=== PATIENT | female | born 2000 | race Caucasian/White ===

== ENCOUNTER 2020-06-15 13:11 | Outpatient (CLI) | payer OTHER, SELFPAY ==
--- NOTE | ~2020-06-15 | US_ITS ---
EXAMINATION: US OB follow up DATE: 06/15/2020 13:53 INDICATION: Evaluate dating of at the transition from the first or second trimester TECHNIQUE: Real-time ultrasound of the pelvis was performed. The interpreting radiologist was not pre sent for the study. COMPARISON: None. FINDINGS: There is a single living fetus in viable presentation. The placenta is anterior. heart rate is 157 beats per minute (bpm). The amniotic fluid index is subjectively normal. 1.4 x 0.8 x 0.9 cm subc horionic hematoma along the left inferior margin of the placenta. The following biometric data were obtained: BPD: 2.6 cm -> 14 weeks 4 days Head circumference: 9.8 cm -> 14 weeks 4 days Abdominal circumference: 8.2 cm -> 14 weeks 4 days Femur length: 1.2 cm -> 13 weeks 3 days These measurements are concordant. Head circumference to abdominal circumference ratio: 1.19 (normal range 1.08-1.36). Estimated weight: 89 g (+/-) 13 g. IMPRESSION: 1. Single living fetus in variable presentation with heart rate of 157 bpm. 2. Gestational age by ultrasound of 14 weeks 2 day(s) +/- 7 day(s) with ultrasound estimated date of delivery (JESUSITA) of 12/12/2020. Estimated weight is 89th percentile by Hadlock criteria when 2020 is used as the JESUSITA. Please correlate with clinical information or earlier ultrasounds for most a ccurate JESUSITA. 3. Small subchorionic hematoma. Reviewed, dictated and finalized at location A. IMPRESSION: 1. Single living fetus in variable presentation with heart rate of 157 bp m. 2. Gestational age by ultrasound of 14 weeks 2 day(s) +/- 7 day(s) with ultraso und estimated date of delivery (JESUSITA) of 12/12/2020. Estimated weight is 89 th percentile by Hadlock criteria when 12/10/2020 is used as the JESUSITA. Please cor relate with clinical information or earlier ultrasounds for most accurate JESUSITA. 3. Small subchorionic hematoma.
== END 2020-06-15 13:12 | disposition home or self-care (01) ==
PROVIDERS: PCP Pediatrics; Visit Provider Obstetrics & Gynecology
DX: Z36.89 Encounter for other specified antenatal screening (principal); Z3A.14 14 weeks gestation of pregnancy; O36.8911 Maternal care for other specified fetal problems, first trimester, fetus 1
CPT/HCPCS: 76816

== ENCOUNTER 2020-06-27 14:20 | Outpatient (CLI) | payer OTHER, SELFPAY ==
[2020-06-27 14:57] LABS: Basophils Percent Auto 0.2 % (0.2-1.2); Eosinophils Absolute Auto 0.1 K/mm3 (0-0.3); Eosinophils Percent Auto 1.3 % (0-4.4); Hematocrit 31.3 % (37.0-47.0); Hemoglobin 10.1 g/dL (12.0-15.0); Immature Granulocyte Absolute 0.03 K/mm3 (0.00-0.031); Immature Granulocyte Percent A 0.4 % (0-0.5); Lymphocytes Absolute Auto 2.09 K/mm3 (0.9-3.2); Lymphocytes Percent Auto 25.3 % (18.3-44.2); Mean Corpuscular HGB Conc 32.3 g/dl (32-36); Mean Corpuscular Volume 80.5 fl (80-100); Mean Platelet Volume 11.6 fl (7.4-10.4); Monocytes Absolute Auto 0.4 K/mm3 (0.1-0.6); Monocytes Percent Auto 4.4 % (2.6-8.5); Neutrophils Absolute Auto 5.7 K/mm3 (1.3-6.7); Neutrophils Percent Auto 68.4 % (45.5-73.1); Platelet Count Result 206 k/mm3 (150-375); Red Blood Count 3.89 M/mm3 (4.2-5.4); Red Cell Distribution Width 14.1 % (11.5-14.5); White Blood Count 8.3 K/mm3 (4.5-10.0)
[2020-06-27 15:49] LABS: HIV 1/2 Ab P24 Ag Result Negative (Negative)
[2020-06-27 16:07] LABS: Hepatitis B Surface Antigen Negative (Negative); Rubella IgG Antibody 19.4 IU/ML
[2020-06-27 16:21] LABS: Hepatitis C Virus Antibody Negative (Negative)
[2020-06-28 07:21] LABS: Rapid Plasma Reagin Non-Reactive (NonReactive)
== END 2020-06-27 14:21 | disposition home or self-care (01) ==
PROVIDERS: PCP Pediatrics; Visit Provider Obstetrics & Gynecology
DX: Z34.90 Encounter for supervision of normal pregnancy, unspecified, unspecified trimester (principal); Z3A.00 Weeks of gestation of pregnancy not specified
CPT/HCPCS: 36415; 85025; 86592; 86703; 86762; 86803; 86850; 86900; 86901; 87340; G0432

== ENCOUNTER 2020-11-30 19:16 | Observation (INO) | payer OTHER, SELFPAY ==
[2020-11-30] VITALS (8 sets, daily range): BP systolic 104–129; BP diastolic 53–71; PULSE 62–103; BMI 21.8
== END 2020-11-30 21:45 | disposition home or self-care (01) ==
PROVIDERS: Admitting Provider Obstetrics & Gynecology; PCP Pediatrics; Visit Provider Obstetrics & Gynecology
DX: O47.1 False labor at or after 37 completed weeks of gestation (principal); Z3A.38 38 weeks gestation of pregnancy
CPT/HCPCS: G0378; G0379

== ENCOUNTER 2020-12-10 15:28 | Observation (INO) | payer OTHER, SELFPAY ==
[2020-12-10 16:00] VITALS: BMI 21.8
--- NOTE | 2020-12-10 18:21 | OBADM ---
This patient, Rebel Kumar, admitted to the OB room Labor/Delivery/Recovery 106 for observation. Patient/family oriented to hospital policies and general routines including ID bracelet, bed and alarms, visiting hours, pain management, procedures, bathroom and other care routines, personal items, smoking policy, room service/diet, call light, and visiting hours. Patient/Family are encouraged to report perceived risks to care and to ask questions if they do not understand what they are told or what they should do.
--- NOTE | 2020-12-19 10:34 | PM.OBTRLD ---
OB - Triage/Final Diagnosis Visit Information Comments/Additional reasons for admission: I have assessed the risk for this patient, Rebel Kumar, and determined that she would benefit from observation care. Final Diagnosis (1) False labor, unspecified: Code(s): O47.9 - False labor, unspecified Status: Acute
== END 2020-12-10 18:26 | disposition home or self-care (01) ==
PROVIDERS: Admitting Provider Obstetrics & Gynecology; PCP Pediatrics; Visit Provider Obstetrics & Gynecology
DX: O47.1 False labor at or after 37 completed weeks of gestation (principal); Z3A.40 40 weeks gestation of pregnancy
CPT/HCPCS: G0378; G0379

== ENCOUNTER 2020-12-11 05:57 | Inpatient (IN) | payer OTHER, SELFPAY ==
[2020-12-10 16:16] VITALS: BMI 21.8
[2020-12-11] VITALS (53 sets, daily range): BP systolic 73–134; BP diastolic 45–97; PULSE 61–130; RESP 14–16; TEMP 36.3–37.1; O2SAT 99–100
--- NOTE | 2020-12-11 06:35 | WPDANESEPP ---
Anes - Eval Pre Procedure Procedure: labor epidural Date/Time: 12/11/20 06:35 Surgeon: eric Preop Diagnosis: pain during labor Pre Op Diagnosis: Induction of Labor Patient Data Age: 20 Gender: F Height: 1.5 m Weight: 49 kg Last Vital Signs Pulse 77 12/11/20 06:30 BP 128/70 12/11/20 06:30 Allergies Allergy/AdvReac Type Severity Reaction Status Date / Time latex Allergy Hives Verified 12/10/20 16:35 nickel Allergy Hives Verified 12/10/20 16:35 Patient hx anesthesia problems: none Family hx anesthesia problems: none PMFSH Past Medical History Medical History (Updated 12/06/20 @ 15:14 by Shannon Lancaster CMA) Vaginal delivery x3 Family History Family History (Updated 12/10/20 @ 16:18 by Yamilet Sheikh RN) Mother Hypertension Father Hypertension Social History Social History Smoking status: Never smoker Alcohol intake: never Substance use: never Gender identity (if verbalized by the patient): Female Sexual Orientation (if Verbalized by the Patient): Straight or Heterosexual Spiritual care concerns: No Exam Day of Procedure 12/11/20 06:35
[2020-12-11 06:49] LABS: Basophils Percent Auto 0.2 % (0.2-1.2); Eosinophils Absolute Auto 0.1 K/mm3 (0-0.3); Eosinophils Percent Auto 0.7 % (0-4.4); Hematocrit 32.2 % (37.0-47.0); Hemoglobin 10.2 g/dL (12.0-15.0); Immature Granulocyte Absolute 0.09 K/mm3 (0.00-0.031); Immature Granulocyte Percent A 1.1 % (0-0.5); Immature Platelet Fraction Pct 9.8 % (0.9-11.2); Lymphocytes Absolute Auto 2.28 K/mm3 (0.9-3.2); Lymphocytes Percent Auto 27.9 % (18.3-44.2); Mean Corpuscular HGB Conc 31.7 g/dl (32-36); Mean Corpuscular Hemoglobin 25.5 pg (26-34); Mean Corpuscular Volume 80.5 fl (80-100); Monocytes Absolute Auto 0.5 K/mm3 (0.1-0.6); Monocytes Percent Auto 6.4 % (2.6-8.5); Neutrophils Absolute Auto 5.2 K/mm3 (1.3-6.7); Neutrophils Percent Auto 63.7 % (45.5-73.1); Platelet Count Result 179 k/mm3 (150-375); Red Cell Distribution Width 21.3 % (11.5-14.5); White Blood Count 8.2 K/mm3 (4.5-10.0)
[2020-12-11] MEDS: LACTATED RINGERS 1,000 ML 125 ML IV CONT ×2 (07:16→10:35)
[2020-12-11 07:17] LABS: Rapid Plasma Reagin Non-Reactive (NonReactive)
[2020-12-11] MEDS: OXYTOCIN 30 UNITS/NS 500 ML 30 UNITS/500 ML BAG IV CONT (07:17)
--- NOTE | 2020-12-11 07:29 | LDADM ---
This patient, Rebel Kumar, was admitted to Labor/Delivery/Recovery 106 on 12/11/20 at 05:57. Plans for labor, pain management and were discussed with patient. Patient/family oriented to hospital policies and general routines including ID bracelet, bed and alarms, visiting hours, pain management, procedures, bathroom and other care routines, personal items, smoking policy, room service/diet and guest tray routines, security routines, and visiting hours. Patient/Family are encouraged to report perceived risks to care and to ask questions if they do not understand what they are told or what they should do. See OBIX for further documentation.
--- NOTE | 2020-12-11 08:55 | WPDOBADMIT ---
Obstetrics - Admit Note Admission Note: record reviewed. No pertinent additions to the history and/or any subsequent changes in the physical findings that are not consistent with the expected course of the were found. Additions to the history and/or subsequent changes in the physical findings follow. at 39+ weeks for induction of labor. Cervix 3-4/30/-2/soft/anterior. AROM with clear pink-tinged fluid. Continue pitocin. Negative GBS
[2020-12-11] MEDS: ONDANSETRON INJ 4 MG/2 ML VIAL IV PUSH (11:15)
--- NOTE | 2020-12-11 12:13 | PM.OBPRVD ---
OB - Delivery Note Procedure Delivery date: 12/11/20 Procedure: events: Labor Induction Induction method: AROM and per pitocin protocol Delivery monitor: external FHT and external uterine Route of delivery: Laceration Description: Perineal - 2nd Degree Delivery repair: vicryl (3-0) Specimen: No Quantitative Blood Loss (ml): 224 Anesthesia type: Epidural Disposition: floor Baby Date of : 12/11/20 Time of : 11:45 Weeks of gestation at delivery: 39 Infant gender: Female Weight (pounds): 7 Weight (ounces): 10 presentation: vertex position: Left Occiput Anterior Placenta delivery description: Spontaneous cord vessel description: 3 Vessels, Nuchal Cord, Loose, Reduced and Clamped/Cut score one minute: 9 score five minutes: 9
[2020-12-11] MEDS: OXYTOCIN 30 UNITS/NS 500 ML 30 UNITS/500 ML BAG 125 UNITS IV CONT (12:25)
--- NOTE | 2020-12-11 14:06 | PC.NURSE ---
Patient transferred to post room #291 per wheelchair from labor and delivery. Support person present. Oriented to unit, room, information board, rooming in, admission packet and security measures. Patient verbalizes understanding.
--- NOTE | 2020-12-11 14:55 | PC.NURSE ---
Breast pump provided due to mother wishes to pump and bottle feed. Instructions given on breast pump care and usage, pumping schedule, nipple care, and collection and storage of breast milk. Encouraged wupj-hi-jrpt, breast massage and manual expression to stimulate supply. Discussed milk supply may be small at first, any amount can be given to infant. Assessed patient for correct flange size, placement and draw. Patient verbalizes and demonstrates understanding of instructions.
[2020-12-11] MEDS: IBUPROFEN 600 MG TABLET PO ×2 (15:41→23:49)
[2020-12-12 04:50] VITALS: BP 100/48; PULSE 70; RESP 15; TEMP 36.3; O2SAT 99
[2020-12-12 05:30] LABS: Hematocrit 31.4 % (37.0-47.0); Hemoglobin 9.8 g/dL (12.0-15.0)
[2020-12-12] MEDS: WITCH HAZEL 40 PADS 1 PAD TOPICAL (07:01)
[2020-12-12] MEDS: DOCUSATE SODIUM 100 MG CAPSULE PO (07:01)
[2020-12-12] MEDS: LANOLIN (LANSINOH) 7.5 GM CREAM 1 APPLIC TOPICAL (07:01)
[2020-12-12] MEDS: BENZOCAINE 20% AER SPR (*SP) 56 GM CAN 1 SPRAY TOPICAL (07:01)
[2020-12-12] MEDS: POLYSACCHARIDE IRON COMPLEX 150 MG CAPSULE PO (07:01)
[2020-12-12] MEDS: IBUPROFEN 600 MG TABLET PO (07:02)
[2020-12-12] MEDS: MULTIVIT/MIN/PREN/FOL AC/IRON TABLET 1 TAB PO (07:02)
[2020-12-12 07:15] VITALS: BP 99/57; PULSE 81; RESP 18; TEMP 36.5
--- NOTE | 2020-12-12 08:08 | PM.OBPNVD ---
OB - PN: Subj Subjective Date/time seen: 12/12/20 08:08 Patient comments: no complaints, pain well controlled and other (Lochia similar to menses) [place] baby status: doing well OB - PN: Obj Data Labs CBC & Chem 7: 12/12/20 05:05 Labs: Laboratory Results - last 24 hr 12/12/20 05:05 Hgb 9.8 L Hct 31.4 L OB - PN A/P Plan day: 1 (s/p vaginal delivery, doing well) Plan: routine care and discharge home (Follow up in 4 weeks) Time Spent With Patient Time: Total time spent is greater than 50% in coordination of care (as documented) at patient's floor/unit and/or counseling patient: Time with patient: less than 15 minutes Exam Const: General: no acute distress GI: Inspection: other (Fundus firm and nontender at umbilicus) GI Palp: Yes Soft to palpation and No Tenderness to palpation present (GI) Extrem: General: no edema
--- NOTE | 2020-12-12 08:09 | PM.OBDSVD ---
DS: Admitting Diagnosis Admitting Diagnosis Admitting Diagnosis: induction of labor DS: Discharge Diagnosis Discharge Diagnosis (1) Normal vaginal delivery of fourth : Code(s): O80 - Encounter for full-term uncomplicated delivery Status: Acute OB - DS: Summary OB Procedures : None OB Procedures Intrapartum: Spontaneous Vag Delivery OB Procedures: : None Peripartum Data Infant Delivery Method: Natural Vaginal Laceration Description: Perineal - 2nd Degree complications: none Status at Discharge Functional status at discharge: independent ambulation Overall status at discharge: patient is progressing back to baseline Time Spent with Patient Time attestation: Total time spent providing and/or coordinating discharge services: Time spent: Less than 30 minutes DS: Data Data Completed and Pending Labs on day of discharge: Labs from last 24 hours 12/12/20 05:05 Hgb 9.8 L Hct 31.4 L Discharge Plan Discharge Attending physician on discharge: Rebekah Hein Discharging Clinician: Rebekah Hein Patient Disposition: Home, Self-Care Activity: may shower and pelvic rest Diet: as tolerated Patient Instructions: Antibiotic Form Stand Alone Forms: General Discharge Information Follow-up/Referrals: Rebekah Hein MD [Physician] - 4 Weeks Discharge Medications: New ibuprofen 600 mg Tablet 600 mg PO Q6H PRN (Reason: Cramping) Qty: 60 RF: 0 No Action No Home Medications RF: 0 Date of admission: 12/11/20 05:57 Primary Care Provider: SabinaMarlo Admitting Provider: Rebekah Hein Attending physician on admission: Rebekah Hein Condition: Stable
--- NOTE | 2020-12-12 09:00 | PC.NURSE ---
Patient was given the opportunity to view the discharge video Mother & Baby Care, The First Two Weeks and to ask questions. Patient declined viewing the video and has been given the mother/baby guide for home reference.
--- NOTE | 2020-12-12 09:05 | WPDANLDPN2 ---
Anes-Prog Note L&D Date/Time: 12/12/20 09:05 Comfortable throughout: labor and delivery Neuraxial method: epidural Epidural/Spinal procedure site: clean & non-tender Neuro status: Neuro function grossly intact. Cardiovascular status: normal Respiratory status: normal Airway patency: baseline Mental status: baseline Post-Op hydration status: normal Vital Signs: Last Vital Signs Temp 36.5 C 12/12/20 07:15 Pulse 81 12/12/20 07:15 Resp 18 12/12/20 07:15 BP 99/57 L 12/12/20 07:15 Pulse Ox 99 12/12/20 04:50 Pain score (VAS): 0/10. Patient resting in bed at time of assessment, appears comfortable. Support person at bedside. I/O: Intake & Output 12/11/20 12/12/20 12/12/20 23:59 07:59 15:59 Intake Total 500 Balance 500 Post-procedural complaints: none Patient feedback: Patient satisfied with anesthetic care.
--- NOTE | 2020-12-12 10:30 | PC.NURSE ---
Consult with pt., mother states she put infant to breast last evening and has put to breast every feeding. Mother states her plan was to pump and bottle feed only putting to breast to assist with milk supply. Mother states she will continue to put to breast supplementing after if she feels is not satisfied after . Reviewed infant feeding cues, frequencies, duration of feedings, feeding elimination flow sheet, and signs of adequate intake. Demonstrated stimulation techniques to wake for feeding. Assisted with infant to breast. Reviewed positioning/alignment in cross cradle, holding breast in U hold and guided asymmetrical latch on. was able to latch correctly within a few attempts. Infant nursed eagerly, with steady draws and frequent swallowing noted. Reviewed signs of a correct latch, effective nursing and suck swallow ratio. Infant was able to maintain latch. Mother reported tenderness at times, had slipped to shallow latch. Demonstrated how to adjust latch more deeply while feeding. Mother quickly reports she can feel is latched more deeply and has minimal tenderness. Suggested to stimulate while feeding to keep awake and nursing effectively for increased stimulation and increased intake. Instructed mother to call out for RN assistance if she is unable to latch for feeding or she has discomfort with nursing. Mother has a [employer] double electric pump for home use. Mother has bottle fed first 3 children, reviewed the difference of bottle feeding in comparison to . Mother plans on discharge after 24 hours. Mother able to independently latch infant with appropriate positioning/alignment. She denies any nipple discomfort, is feeding as required and waking to feed if needed. Infant has had several as required effective feedings in the past 24 hours, and is currently meeting outcomes for weight, output, jaundice and feeding frequencies. Mother states she feels confident to continue effective at home. Reviewed transition to breast milk, signs of adequate intake, and engorgement/relief. Instructed to call ICP if intake/output less than required. Reviewed regular medications mother is taking. Information provided per Jazmyne. Reviewed community resources on the [employer] website and in the Mom/Baby guide. Information on outpatient services provided. Mother has no further questions at this time.
--- NOTE | 2020-12-12 11:21 | PC.NURSE ---
Self care and infant care discharge instructions given including follow up visit date and time. Pt. verbalized understanding. No questions or concerns voiced. FOB at side. Pt. very pleasant and cooperative.
== END 2020-12-12 12:50 | disposition home or self-care (01) | DRG 560 ==
LOC: ANHLDR 06:00 → ANHOB2 14:26
PROVIDERS: Admitting Provider Obstetrics & Gynecology; PCP Pediatrics; Visit Provider Obstetrics & Gynecology
DX: O62.3 Precipitate labor (principal); Z37.0 Single live birth; Z3A.40 40 weeks gestation of pregnancy; O69.81X0 Labor and delivery complicated by cord around neck, without compression, not applicable or unspecified; O70.1 Second degree perineal laceration during delivery
CPT/HCPCS: 36415; 85014; 85018; 85025; 85055; 86592; 86850; 86900; 86901; A9270; J2405; J2590; J2795; J7120

== ENCOUNTER 2022-07-19 15:57 | Emergency (ER) | payer OTHER, SELFPAY ==
[2022-07-19 16:02] VITALS: BP 107/67; PULSE 115; RESP 20; TEMP 38.6; O2SAT 100
--- NOTE | 2022-07-19 16:12 | ED.GENADULT ---
HPI - General Adult General Chief complaint: RN CHEMICAL DEPENDENCY Stated complaint: Mastitis Time Seen by Provider: 07/19/22 16:12 Source: patient, RN notes reviewed and old records reviewed Mode of arrival: ambulatory Limitations: no limitations History of Present Illness HPI narrative: 21-year-old female who presents to [facility] care with complaints of chills, vomiting, left breast inflammation, and fevers which started yesterday. Patient has red inflamed left breast that is tender to touch and warm. Patient started weaning her baby last week after breast feeding since November of 2020. Patient reports that she did feed child from right breast at bedtime last night but has not fed from left breast. MD complaint: mastitis left breast Onset (ago): day(s) (day 2 of symptoms) Severity scale (1-10): 6 Treatments prior to arrival: NSAID and other (Tylenol) Related Data Allergies Allergy/AdvReac Type Severity Reaction Status Date / Time latex Allergy Hives Verified 07/19/22 16:12 nickel Allergy Hives Verified 07/19/22 16:12 Review of Systems Review of Systems: CONSTITUTIONAL: reports fever, chills, or sweats. EYES: Denies visual changes, redness, or discharge. ENT: Denies rhinorrhea, congestion, sore throat, or otalgia. CARDIOVASCULAR: Denies chest pain, palpitations, or edema. RESPIRATORY: Denies cough or dyspnea. GASTROINTESTINAL: Denies abdominal pain,has had some nausea, vomiting, no diarrhea. GENITOURINARY: Denies dysuria or hematuria. SKIN: Positive for redness swelling and warmth to left medial breast. MUSCULOSKELETAL: Denies back pain, joint pain, or myalgia. NEUROLOGIC: Denies headache, numbness, or weakness. PSYCHIATRIC: Denies anxiety or depression. All systems reviewed & are unremarkable except as noted in HPI and below PMFSH Past Medical History Medical History (Updated 07/19/22 @ 16:42 by Darlene Willson NP) False labor, unspecified Normal vaginal delivery of fourth Vaginal delivery x3 Family History Family History (Updated 12/10/20 @ 16:18 by Yamilet Sheikh RN) Mother Hypertension Father Hypertension Social History Social History Smoking status: Never smoker Second hand tobacco smoke exposure: No Alcohol intake: never Substance use: never Gender identity (if verbalized by the patient): Female Sexual Orientation (if Verbalized by the Patient): Straight or Heterosexual Spiritual care concerns: No Comments At time of signature, agree with nursing past medical, surgical, social and family history. There is no relevant family history pertinent to the presenting complaint Exam Narrative: GENERAL: Well-appearing, well-nourished, and in no acute distress. HEAD: Normocephalic, atraumatic. EYES: PERRLA and EOMI. ENT: Nares clear, no rhinorrhea or epistaxis. Mucous membranes moist.TM's normal with good light reflex, throat pink with no lesions or exudates. NECK: Supple.no lymphadenopathy CHEST: Clear to auscultation. No respiratory distress.SAO2 100% on room air HEART: Regular rate and rhythm. No murmur heard. Normal peripheral pulses. ABDOMEN: Soft, nontender, nondistended, normal active bowel sounds. EXTREMITIES: Normal range of motion. No edema. SKIN: Warm, dry, swelling with some redness and warmth to left medial breast with fever, weaning baby from breast feeding for past week. NEURO: No focal deficits. Alert and oriented x3. Course Course Emergency Course: Patient is aware of diagnosis, understands and agrees to treatment plan.? Anticipatory guidance given.? Patient agrees to follow-up as directed and is aware of reasons to seek care at the emergency department. Portions of this record may have been created with voice recognition software Level of Care: Express Care Visit Vital Signs Vital signs: Vital Signs Temperature 38.6 C H 07/19/22 16:02 Pulse Rate 115 H 07/19/22 16:02 Respiratory Rate 20 07/19/22 16:02 Blood P
== END 2022-07-19 16:42 | disposition home or self-care (01) ==
PROVIDERS: Emergency Provider Registered Nurse
DX: N61.0 Mastitis without abscess (principal)
CPT/HCPCS: 99213; G0463

== ENCOUNTER 2023-03-04 20:33 | Inpatient (IN) | payer OTHER, SELFPAY ==
[2023-03-04] VITALS (20 sets, daily range): BP systolic 107–125; BP diastolic 58–81; PULSE 79–119; TEMP 37.3; O2SAT 96–100; BMI 21.3
--- NOTE | ~2023-03-04 | US_ITS ---
EXAMINATION: US OB follow up w BPP DATE: 03/05/2023 08:01 INDICATION: Evaluate amniotic fluid index and growth TECHNIQUE: Real-time ultrasound of the pelvis was performed. The interpreting radiologist was not pre sent for the study. COMPARISON: None. FINDINGS: There is a single living fetus in vertex presentation. The placenta is posterior. cardiac acti vity and movement are noted. heart rate is 153 beats per minute (bpm). The amniotic fluid index is 21.5 cm, which is normal. The following biometric data were obtained: BPD: 88 cm corresponds to gestational age 35 weeks 3 day(s). Head circumference: 309 cm corresponds to gestational age 34 weeks 3 day(s). Abdominal circumference: 338 cm corresponds to gestational age 37 weeks 5 day(s). Femur length: 67 cm corresponds to gestational age 34 weeks 3 day(s). Head circumference to abdominal circumference ratio: 0.91 (mean 0.93-1.09). Estimated weight: 2896 g plus or minus 434 g. Biophysical profile performed by the technologist: breathing (30 sec sustained breathing in 30 minutes): 2 out of 2 movement (3 gross body movements in 30 minutes: 2 out of 2 tone (one episode of otvnbal-vreqosmwl-qewwbtf limb movement): 2 out of 2 Amniotic fluid pocket (2 cm): 2 out of 2 Total score: 8 out of 8 IMPRESSION: 1. Single living fetus in vertex presentation with heart rate of 153 bpm. 2. Normal HUMBERTO measures 21.5 cm. 3. Biophysical profile 8 out of 8. 4. Gestational age by ultrasound of 35 weeks 4 day(s) with ultrasound estimated date of delivery (JESUSITA ) of 04/05/2023. Reviewed, dictated and finalized at location A. IMPRESSION: 1. Single living fetus in vertex presentation with heart rate of 153 bpm. 2. Normal HUMBERTO measures 21.5 cm. 3. Biophysical profile 8 out of 8. 4. Gestational age by ultrasound of 35 weeks 4 day(s) with ultrasound estimated date of delivery (JESUSITA) of 04/05/2023.
--- NOTE | 2023-03-04 21:24 | OBADM ---
This patient, Rebel Kumar, admitted to the OB room Labor/Delivery/Recovery 107 for observation. Patient/family oriented to hospital policies and general routines including ID bracelet, bed and alarms, visiting hours, pain management, procedures, bathroom and other care routines, personal items, smoking policy, room service/diet, and visiting hours. Patient/Family are encouraged to report perceived risks to care and to ask questions if they do not understand what they are told or what they should do.
[2023-03-04] MEDS: LACTATED RINGERS 1,000 ML 999 ML IV CONT (21:35)
[2023-03-05] VITALS (204 sets, daily range): BP systolic 87–128; BP diastolic 44–104; PULSE 53–181; RESP 16–18; TEMP 36.6–37.2; O2SAT 85–100
--- NOTE | 2023-03-05 02:15 | LDADM ---
This patient, Rebel Kumar, was admitted to Labor/Delivery/Recovery 107 on 03/04/23 at 20:33. Plans for labor, pain management and were discussed with patient. Patient/family oriented to hospital policies and general routines including ID bracelet, bed and alarms, visiting hours, pain management, procedures, bathroom and other care routines, personal items, smoking policy, room service/diet and guest tray routines, security routines, and visiting hours. Patient/Family are encouraged to report perceived risks to care and to ask questions if they do not understand what they are told or what they should do. See OBIX for further documentation.
[2023-03-05 03:01] LABS: Basophils Percent Auto 0.3 % (0.2-1.2); Eosinophils Percent Auto 0.5 % (0-4.4); Hematocrit 35.2 % (37.0-47.0); Hemoglobin 10.4 g/dL (12.0-15.0); Immature Granulocyte Absolute 0.02 K/mm3 (0.00-0.031); Immature Granulocyte Percent A 0.3 % (0-0.5); Lymphocytes Absolute Auto 1.65 K/mm3 (0.9-3.2); Lymphocytes Percent Auto 25.5 % (18.3-44.2); Mean Corpuscular HGB Conc 29.5 g/dl (32-36); Mean Corpuscular Hemoglobin 24.9 pg (26-34); Mean Corpuscular Volume 84.2 fl (80-100); Mean Platelet Volume 12.1 fl (7.4-10.4); Monocytes Absolute Auto 0.4 K/mm3 (0.1-0.6); Monocytes Percent Auto 5.7 % (2.6-8.5); Neutrophils Absolute Auto 4.4 K/mm3 (1.3-6.7); Neutrophils Percent Auto 67.7 % (45.5-73.1); Platelet Count Result 200 k/mm3 (150-375); Red Blood Count 4.18 M/mm3 (4.2-5.4); Red Cell Distribution Width 25.1 % (11.5-14.5); White Blood Count 6.5 K/mm3 (4.5-10.0)
[2023-03-05 03:22] LABS: Large Platelets Present; Platelet Estimate Adequate (Adequate)
[2023-03-05 03:45] LABS: Anisocytosis 2+ (NORMAL); Burr Cells 2+ (NORMAL); Hypochromasia 1+ (NORMAL); Microcytosis 2+ (NORMAL); Poikilocytosis 2+ (NORMAL)
[2023-03-05 03:46] LABS: Schistocytes None Seen (NORMAL)
[2023-03-05] MEDS: diphenhydrAMINE HCl INJ 50 MG/ML VIAL 25 MG IV PUSH (05:15)
[2023-03-05] MEDS: LACTATED RINGERS 1,000 ML 125 ML IV CONT ×2 (09:07→12:35)
[2023-03-05] MEDS: OXYTOCIN 30 UNITS/NS 500 ML 30 UNITS/500 ML BAG IV CONT (09:07)
--- NOTE | 2023-03-05 09:54 | PM.IMHP ---
H&P: HPI History of Present Illness Date/Time: 03/05/23 09:54 Chief Complaint: pt presented to LD last night in early labor, went from 1cm-3cm, after hydration and rest contractions are now every 6-8 minutes. Pt rating them a 6 on a scale of zero ten. FHR there have been questionable variables and a prolonged acceleration this am that resolved on its own. pt wanting epidural. has been complicated by anemia and pt has received an iron transfusion. 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 history of four previous vaginal births Review of Systems Review of Systems: All systems reviewed & are unremarkable except as noted in HPI and below PMFSH Past Medical History Medical History (Updated 03/05/23 @ 10:00 by Soni Boone CNM) False labor, unspecified Normal vaginal delivery of fourth Suppression of menses Vaginal delivery x3 Surgical History Surgical History H/O eye surgery Family History Family History Mother Hypertension Father Hypertension Social History Social History Smoking status: Never smoker Second hand tobacco smoke exposure: No Alcohol intake: never Substance use: never Lack of Transportation: No Lack of Food: Never True Current Housing: I Have Housing Concerned About Future Housing: No Difficulty Paying Gas/Electric Bills: No Difficulty Paying for Meds: No Currently Unemployed: No Education: High School Diploma/GED Difficulty w/ Childcare or Family Care: No Living arrangements: with family Gender identity (if verbalized by the patient): Female Sexual Orientation (if Verbalized by the Patient): Straight or Heterosexual Spiritual care concerns: No Meds Home Medications and Allergies Home Medications Medication Instructions Recorded Confirmed Type No Home Medications 02/14/23 02/21/23 History Allergies Allergy/AdvReac Type Severity Reaction Status Date / Time latex Allergy Hives Verified 02/25/23 14:43 nickel Allergy Hives Verified 02/25/23 14:43 Vital Signs Vital Signs - 24 hr 03/04/23 21:03 03/04/23 21:08 03/04/23 21:13 Temperature Pulse Rate Blood Pressure Pulse Oximetry 99 100 100 Oxygen Delivery 03/04/23 21:15 03/04/23 21:18 03/04/23 21:23 Temperature Pulse Rate 100 Blood Pressure 107/77 Pulse Oximetry 100 100 Oxygen Delivery 03/04/23 21:28 03/04/23 21:30 03/04/23 21:33 Temperature Pulse Rate 82 Blood Pressure 116/79 Pulse Oximetry 100 100 Oxygen Delivery 03/04/23 21:38 03/04/23 21:43 03/04/23 21:46 Temperature Pulse Rate 98 Blood Pressure 111/81 Pulse Oximetry 100 99 Oxygen Delivery 03/04/23 21:47 03/04/23 21:52 03/04/23 21:57 Temperature Pulse Rate Blood Pressure Pulse Oximetry 96 97 96 Oxygen Delivery 03/04/23 22:01 03/04/23 22:16 03/04/23 22:30 Temperature Pulse Rate 102 H 102 H 102 H Blood Pressure 125/71 122/58 L 119/72 Pulse Oximetry Oxygen Delivery 03/04/23 22:34 03/04/23 23:52 03/05/23 01:57 Temperature 37.3 C Pulse Rate Blood Pressure Pulse Oximetry 100 98 Oxygen Delivery 03/05/23 02:02 03/05/23 02:07 03/05/23 02:12 Temperature Pulse Rate Blood Pressure Pulse Oximetry 100 100 99 Oxygen Delivery 03/05/23 02:17 03/05/23 02:22 03/05/23 02:27 Temperature Pulse Rate Blood Pressure Pulse Oximetry 100 100 100 Oxygen Delivery 03/05/23 02:32 03/05/23 02:37 03/05/23 02:42 Temperature Pulse Rate Blood Pressure Pulse Oximetry 99 99 99 Oxygen Delivery 03/05/23 02:47 03/05/23 02:52 03/05/23 02:57 Temperature Pulse Rate Blood Pressure Pulse Oximetry 99 98 99 Oxygen Delivery 03/05/23 03:02 03/05/23 03:05 03/05/23 03:10 Temperature Pulse Rate Blood Pressure
--- NOTE | 2023-03-05 11:47 | WPDANESEPP ---
Anes - Eval Pre Procedure Procedure: Labor epidural Date/Time: 03/05/23 11:47 Surgeon: Doug Preop Diagnosis: Pain during labor Pre Op Diagnosis: Contractions Patient Data Age: 22 Gender: F Height: 1.5 m Weight: 48 kg Last Vital Signs Temp 37.2 C 03/05/23 09:42 Pulse 98 03/05/23 11:46 BP 112/64 03/05/23 11:46 Pulse Ox 100 03/05/23 10:20 O2 Del Method Room Air 03/05/23 02:13 Allergies Allergy/AdvReac Type Severity Reaction Status Date / Time latex Allergy Hives Verified 02/25/23 14:43 nickel Allergy Hives Verified 02/25/23 14:43 Home Medications Medication Instructions Recorded Confirmed Type No Home Medications 02/14/23 02/21/23 History Laboratory Tests 03/05/23 02:54 WBC 6.5 K/mm3 (4.5-10.0) RBC 4.18 L M/mm3 (4.2-5.4) Hgb 10.4 L g/dL (12.0-15.0) Hct 35.2 L % (37.0-47.0) MCV 84.2 fl (80-100) MCH 24.9 L pg (26-34) MCHC 29.5 L g/dl (32-36) RDW 25.1 H % (11.5-14.5) Plt Count 200 k/mm3 (150-375) MPV 12.1 H fl (7.4-10.4) Immature Gran % (Auto) 0.3 % (0-0.5) Neut % (Auto) 67.7 % (45.5-73.1) Lymph % (Auto) 25.5 % (18.3-44.2) [place] % (Auto) 5.7 % (2.6-8.5) Eos % (Auto) 0.5 % (0-4.4) Baso % (Auto) 0.3 % (0.2-1.2) Lymph # (Auto) 1.65 K/mm3 (0.9-3.2) [place] # (Auto) 0.4 K/mm3 (0.1-0.6) Eos # (Auto) 0.0 K/mm3 (0-0.3) Baso # (Auto) 0.0 K/mm3 (0.0-0.1) Abs Immat Gran (auto) 0.02 K/mm3 (0.00-0.031) Absolute Neuts (auto) 4.4 K/mm3 (1.3-6.7) Absolute Nucleated RBC 0.0 K/mm3 (0.0-0.012) Nucleated RBC % 0.0 % (0.0-0.2) Platelet Estimate Adequate (Adequate) Large Platelets Present % Immature Plt Fraction 11.0 % (0.9-11.2) Hypochromasia 1+ (NORMAL) Poikilocytosis 2+ (NORMAL) Anisocytosis 2+ (NORMAL) Microcytosis 2+ (NORMAL) [place] Cells 2+ (NORMAL) Schistocytes None seen (NORMAL) RPR Pending Blood Type O Positive Antibody Screen Negative Patient hx anesthesia problems: none Family hx anesthesia problems: none Results Review: All pre-operative results and documents have been reviewed as part of the pre-operative evaluation. [facility] Past Medical History Medical History False labor, unspecified Normal vaginal delivery of fourth Suppression of menses Vaginal delivery x3 Surgical History Surgical History H/O eye surgery Family History Family History Mother Hypertension Father Hypertension Social History Social History Smoking status: Never smoker Second hand tobacco smoke exposure: No Alcohol intake: never Substance use: never Lack of Transportation: No Lack of Food: Never True Current Housing: I Have Housing Concerned About Future Housing: No Difficulty Paying Gas/Electric Bills: No Difficulty Paying for Meds: No Currently Unemployed: No Education: High School Diploma/GED Difficulty w/ Childcare or Family Care: No Living arrangements: with family Gender identity (if verbalized by the patient): Female Sexual Orientation (if Verbalized by the Patient): Straight or Heterosexual Spiritual care concerns: No Exam Day of Procedure 03/05/23 11:47 Patient weight: normal Neurological: alert and oriented
--- NOTE | 2023-03-05 12:48 | PM.OBPNLAB ---
Pain Control Date/time seen: 03/05/23 12:48 SVE 3.5/60/-2 AROM large amount of clear fluid, then became pink, no bright red blood, cont to monitor
--- NOTE | 2023-03-05 13:51 | ECG_ITS ---
Measurements Intervals Kinder Rate: 80 P: -51 WY: 110 QRS: 46 QRSD: 73 T: 40 QT: 377 QTc: 436 Interpretive Statements SINUS RHYTHM WITH SHORT WY INTERVAL WITH SINUS ARRHYTHMIA NO PREVIOUS ECG AVAILABLE FOR COMPARISON Electronically Signed On 03-06-2023 10:41:27 CDT by Awais Reid M.D.
--- NOTE | 2023-03-05 14:37 | PM.OBPRVD ---
OB - Delivery Note Procedure Delivery date: 03/05/23 Procedure: Events: Other (anemia) Intrapartal Events: Non-Reassuring Status Induction method: AROM and Per Pitocin Protocol Delivery monitor: External FHT, External Uterine and Internal Uterine Route of delivery: Laceration Description: None Specimen: Yes Quantitative Blood Loss (ml): 100 Anesthesia type: Epidural Disposition: Floor [place] Baby Date of : 03/05/23 Time of : 14:29 Weeks of gestation at delivery: 37 gender: Female presentation: vertex position: Other (OA to ALEJANDRA) Placenta delivery description: Spontaneous Cord Vessel Description: 3 Vessels, Nuchal Cord (x1), Tight and Clamped/Cut score one minute: 7 score five minutes: 9 Narrative: mother and baby in stable condition
[2023-03-05] MEDS: OXYTOCIN 30 UNITS/NS 500 ML 30 UNITS/500 ML BAG 125 UNITS IV CONT (15:09)
[2023-03-05] MEDS: ACETAMINOPHEN 325 MG TABLET 650 MG PO (16:30)
--- NOTE | 2023-03-05 21:14 | PC.NURSE ---
1834: EKG done on pt per provider order. EKG results WNL
[2023-03-05] MEDS: BENZOCAINE 20% AER SPR (*SP) 56 GM CAN 1 SPRAY TOPICAL (22:18)
[2023-03-05] MEDS: WITCH HAZEL 40 PADS 1 PAD TOPICAL (22:18)
[2023-03-06 05:21] LABS: Hematocrit 30.5 % (37.0-47.0); Hemoglobin 9.4 g/dL (12.0-15.0)
--- NOTE | 2023-03-06 07:46 | PM.OBPNVD ---
OB - PN: Subj Subjective Date/time seen: 03/06/23 07:46 pt doing well no complaints baby transferred OB - PN: Obj Data Labs 03/06/23 04:10 Labs: Laboratory Results - last 24 hr 03/06/23 04:10 Hgb 9.4 L Hct 30.5 L Imaging Radiologist's impression: Impressions Obstetrical Follow-Up 03/05/23 08:04 IMPRESSION: 1. Single living fetus in vertex presentation with heart rate of 153 bpm. 2. Normal HUMBERTO measures 21.5 cm. 3. Biophysical profile 8 out of 8. 4. Gestational age by ultrasound of 35 weeks 4 day(s) with ultrasound estimated date of delivery (JESUSITA) of 04/05/2023. OB - PN A/P Plan day: 1 Plan: routine care and discharge home Time Spent With Patient Time: Total time spent is greater than 50% in coordination of care (as documented) at patient's floor/unit and/or counseling patient: Review of Systems Review of Systems: All systems reviewed & are unremarkable except as noted in HPI and below Exam Const: General: cooperative Resp: Effort & Inspection: normal respiratory effort Cardio: Rate: regular rate Rhythm: regular rhythm GI: Inspection: normal to inspection Skin: General skin exam: normal color Extrem: Right lower extremity: normal to inspection Left lower extremity: normal to inspection
[2023-03-06] MEDS: ACETAMINOPHEN 325 MG TABLET 650 MG PO (07:48)
--- NOTE | 2023-03-06 07:49 | PM.OBDSVD ---
DS: Admitting Diagnosis Discharge Date 03/06/23 Admitting Diagnosis IOL DS: Discharge Diagnosis Discharge Diagnosis (1) Vaginal delivery: Code(s): O80 - Encounter for full-term uncomplicated delivery Status: Acute (2) Anemia affecting : Code(s): O99.019 - Anemia complicating , unspecified trimester Status: Acute OB - DS: Summary OB Procedures : None OB Procedures Intrapartum: Spontaneous Vag Delivery OB Procedures: : None Time Spent with Patient Time attestation: Total time spent providing and/or coordinating discharge services: DS: Data Data Completed and Pending Pending studies at discharge: Pending at discharge 03/05/23 18:04 Surgical [PTH] Routine Labs on day of discharge: Labs from last 24 hours 03/06/23 04:10 Hgb 9.4 L Hct 30.5 L Discharge Plan Discharge Attending physician on discharge: Sanaz Camacho Consulting providers: Dejah Bower Discharging Clinician: Soni Boone Patient Disposition: Home, Self-Care Activity: pelvic rest Diet: regular Patient Instructions: Antibiotic Form Stand Alone Forms: General Discharge Information Follow-up/Referrals: Soni Boone CNM [Primary Care Provider] - 4 Weeks Discharge Medications: New polysaccharide iron complex 150 mg iron Capsule 150 mg PO BIDWM Qty: 60 0RF ibuprofen 600 mg Tablet 600 mg PO Q6H PRN (Reason: Cramping) Qty: 30 0RF No Action No Home Medications Date of admission: 03/04/23 20:33 Primary Care Provider: Soni Boone Admitting Provider: Sanaz Camacho Attending physician on admission: Sanaz Camacho Condition: Stable
[2023-03-06] MEDS: MULTIVIT/MIN/PREN/FOL AC/IRON TABLET 1 TAB PO (07:50)
[2023-03-06] MEDS: POLYSACCHARIDE IRON COMPLEX 150 MG CAPSULE PO (07:50)
[2023-03-06 08:05] VITALS: BP 103/71; PULSE 59; RESP 16; TEMP 36.9; O2SAT 100
--- NOTE | 2023-03-06 08:06 | WPDANLDPN2 ---
Anes-Prog Note L&D Date/Time: 03/06/23 08:06 Neuro status: Neuro function grossly intact. Vital Signs: Last Vital Signs Temp 36.8 C 03/05/23 22:20 Pulse 64 03/05/23 22:20 Resp 16 03/05/23 22:20 BP 97/64 L 03/05/23 22:20 Pulse Ox 100 03/05/23 22:20 O2 Del Method Room Air 03/05/23 02:13 Pain score (VAS): 0 I/O: Intake & Output 03/05/23 03/06/23 03/06/23 23:59 07:59 15:59 Output Total 160 Balance -160 Patient feedback: Patient satisfied with anesthetic care.
--- NOTE | 2023-03-06 09:56 | PM.CNCAR ---
Assessment and Plan Assessment and plan (1) Tachycardia: Code(s): R00.0 - Tachycardia, unspecified Status: Acute Assessment and Plan: Intermittent tachycardia during labor yesterday. There are no telemetry strips available to identify her rhythm at the time, I am only able to see her heart rate trend. She does have two EKG's that do not demonstrate any irregular rhythm. One EKG did show a slightly shortened OR interval with normal QRS duration and no evidence of WPW pattern. She probably had sinus tachycardia as a physiologic response to stress of labor. Patient is currently asymptomatic and her heart rate is normal at the time of my exam. Since she reports history of feeling her heart race, can order outpatient consulting marine engineer. No other cardiac workup is indicated at this time. History of Present Illness History of Present Illness Consult date/time: 03/06/23 09:56 Requesting physician: Soni Boone CNM Consult reason: Other (irregular heart rhythm during labor ) Reason For Visit: Contractions Narrative: Ms. Kumar is a 22 year old female with no medical history who is admitted to the hospital following an uncomplicated vaginal delivery yesterday. According to nursing report the patient's heart rate during labor became intermittently elevated up to the 150-170 range. Following delivery her heart rate remained in a normal range. When her heart rate became elevated it was not during a time of contraction. She was not experiencing significant pain as she had an epidural. She was able to feel that her heart was beating quickly. She denies feeling any chest pain or shortness of breath. She has no cardiac history and denies any history of chest pain, shortness of breath, syncope, pre-syncope. She does report a history of anxiety and can feel her heart race at times when her anxiety is heightened. At the time of my interview she is lying comfortably in bed and has no complaints of any kind. Review of Systems Review of Systems: All systems reviewed & are unremarkable except as noted in HPI and below PMFSH Past Medical History Medical History False labor, unspecified Normal vaginal delivery of fourth Suppression of menses Vaginal delivery x3 Surgical History Surgical History H/O eye surgery Family History Family History Mother Hypertension Father Hypertension Social History Social History Smoking status: Never smoker Second hand tobacco smoke exposure: No Alcohol intake: never Substance use: never Lack of Transportation: No Lack of Food: Never True Current Housing: I Have Housing Concerned About Future Housing: No Difficulty Paying Gas/Electric Bills: No Difficulty Paying for Meds: No Currently Unemployed: No Education: High School Diploma/GED Difficulty w/ Childcare or Family Care: No Living arrangements: with family Gender identity (if verbalized by the patient): Female Sexual Orientation (if Verbalized by the Patient): Straight or Heterosexual Spiritual care concerns: No Meds Home Medications and Allergies Home Medications Medication Instructions Recorded Confirmed Type ibuprofen 600 mg tablet 600 mg PO Q6H PRN Cramping #30 tabs 03/06/23 Rx polysaccharide iron complex 150 mg 150 mg PO BIDWM #60 caps 03/06/23 Rx iron capsule Allergies Allergy/AdvReac Type Severity Reaction Status Date / Time latex Allergy Hives Verified 02/25/23 14:43 nickel Allergy Hives Verified 02/25/23 14:43 Vital Signs Vital Signs - 24 hr 03/05/23 10:00 03/05/23 10:05 03/05/23 10:10 Temperature Pulse Rate 97 Respiratory Rate Blood Pressure 105/68 Pulse Oximetry 99 99 99 03/05/23 10:15 03/05/23 10
[2023-03-06 10:05] LABS: Rapid Plasma Reagin Non-Reactive (NonReactive)
== END 2023-03-06 11:18 | disposition home or self-care (01) | DRG 560 ==
LOC: ANHLDR 03-05 11:28 → ANHOB2 03-05 18:14
PROVIDERS: Admitting Provider Obstetrics & Gynecology; PCP Advanced Practice Midwife; Visit Provider Obstetrics & Gynecology
DX: O60.14X0 Preterm labor third trimester with preterm delivery third trimester, not applicable or unspecified (principal); O99.42 Diseases of the circulatory system complicating childbirth; O76 Abnormality in fetal heart rate and rhythm complicating labor and delivery; O62.3 Precipitate labor; O99.02 Anemia complicating childbirth; O69.1XX0 Labor and delivery complicated by cord around neck, with compression, not applicable or unspecified; Z3A.37 37 weeks gestation of pregnancy; Z37.0 Single live birth
CPT/HCPCS: 36415; 76816; 76819; 85014; 85018; 85025; 85055; 86592; 86850; 86900; 86901; 88307; 93005; A9270; J1200; J2590; J2795; J7120

== ENCOUNTER 2024-05-22 13:22 | Inpatient (IN) | payer OTHER, SELFPAY ==
[2024-05-22] VITALS (47 sets, daily range): BP systolic 96–119; BP diastolic 41–77; PULSE 63–163; RESP 16–18; TEMP 36.6–37.2; O2SAT 84–100; BMI 22.6
--- NOTE | 2024-05-22 14:01 | WPDOBADMIT ---
Obstetrics - Admit Note Admission Note: record reviewed. No pertinent additions to the history and/or any subsequent changes in the physical findings that are not consistent with the expected course of the were found. Additions to the history and/or subsequent changes in the physical findings follow. admit in labor SVE by RN /, anticipate vaginal delivery
[2024-05-22 14:05] LABS: Basophils Percent Auto 0.4 % (0.2-1.2); Eosinophils Percent Auto 0.1 % (0-4.4); Hemoglobin 9.5 g/dL (12.0-15.0); Immature Granulocyte Absolute 0.06 K/mm3 (0.00-0.031); Immature Granulocyte Percent A 0.7 % (0-0.5); Lymphocytes Absolute Auto 1.74 K/mm3 (0.9-3.2); Lymphocytes Percent Auto 21.2 % (18.3-44.2); Mean Corpuscular HGB Conc 31.7 g/dl (32-36); Mean Corpuscular Hemoglobin 25.2 pg (26-34); Mean Corpuscular Volume 79.6 fl (80-100); Mean Platelet Volume 11.7 fl (7.4-10.4); Monocytes Absolute Auto 0.4 K/mm3 (0.1-0.6); Monocytes Percent Auto 5.3 % (2.6-8.5); Neutrophils Absolute Auto 5.9 K/mm3 (1.3-6.7); Neutrophils Percent Auto 72.3 % (45.5-73.1); Platelet Count Result 192 k/mm3 (150-375); Red Blood Count 3.77 M/mm3 (4.2-5.4); Red Cell Distribution Width 15.7 % (11.5-14.5); White Blood Count 8.2 K/mm3 (4.5-10.0)
[2024-05-22] MEDS: LACTATED RINGERS 1,000 ML 125 ML IV CONT (14:09)
--- NOTE | 2024-05-22 14:12 | LDADM ---
This patient, Rebel Finch, was admitted to Labor/Delivery/Recovery 106 on 05/22/24 at 13:22. Plans for labor, pain management and were discussed with patient. Patient/family oriented to hospital policies and general routines including ID bracelet, bed and alarms, visiting hours, pain management, procedures, bathroom and other care routines, personal items, smoking policy, room service/diet and guest tray routines, security routines, and visiting hours. Patient/Family are encouraged to report perceived risks to care and to ask questions if they do not understand what they are told or what they should do. See OBIX for further documentation.
[2024-05-22 14:38] LABS: Rapid Plasma Reagin Non-Reactive (NonReactive)
--- NOTE | 2024-05-22 14:49 | WPDANESEPP ---
Anes - Eval Pre Procedure Procedure: labor epidural Date/Time: 05/22/24 14:49 Preop Diagnosis: labor pain Pre Op Diagnosis: contractions Patient Data Age: 23 Gender: F Height: 1.6 m Weight: 51 kg Last Vital Signs Pulse 73 05/22/24 14:45 BP 107/66 05/22/24 14:45 Pulse Ox 93 05/22/24 14:47 O2 Del Method Room Air 05/22/24 14:11 Allergies Allergy/AdvReac Type Severity Reaction Status Date / Time latex Allergy Hives Verified 02/25/23 14:43 nickel Allergy Hives Verified 02/25/23 14:43 Home Medications Medication Instructions Recorded Confirmed Type polysaccharide iron complex 150 mg 150 mg PO BIDWM #60 caps 03/06/23 05/22/24 Rx iron capsule Laboratory Tests 05/22/24 13:58 WBC 8.2 K/mm3 (4.5-10.0) RBC 3.77 L M/mm3 (4.2-5.4) Hgb 9.5 L g/dL (12.0-15.0) Hct 30.0 L % (37.0-47.0) MCV 79.6 L fl (80-100) MCH 25.2 L pg (26-34) MCHC 31.7 L g/dl (32-36) RDW 15.7 H % (11.5-14.5) Plt Count 192 k/mm3 (150-375) MPV 11.7 H fl (7.4-10.4) Immature Gran % (Auto) 0.7 H % (0-0.5) Neut % (Auto) 72.3 % (45.5-73.1) Lymph % (Auto) 21.2 % (18.3-44.2) [place] % (Auto) 5.3 % (2.6-8.5) Eos % (Auto) 0.1 % (0-4.4) Baso % (Auto) 0.4 % (0.2-1.2) Lymph # (Auto) 1.74 K/mm3 (0.9-3.2) [place] # (Auto) 0.4 K/mm3 (0.1-0.6) Eos # (Auto) 0.0 K/mm3 (0-0.3) Baso # (Auto) 0.0 K/mm3 (0.0-0.1) Abs Immat Gran (auto) 0.06 H K/mm3 (0.00-0.031) Absolute Neuts (auto) 5.9 K/mm3 (1.3-6.7) Absolute Nucleated RBC 0.000 K/mm3 (0.0-0.012) Nucleated RBC % 0.0 % (0.0-0.2) RPR Non-reactive (NonReactive) HIV 1&2 Ab/P24 Ag 4thGn Pending Patient hx anesthesia problems: none Family hx anesthesia problems: none Results Review: All pre-operative results and documents have been reviewed as part of the pre-operative evaluation. PMFSH Past Medical History Medical History False labor, unspecified Normal vaginal delivery of fourth Suppression of menses Vaginal delivery x3 Surgical History Surgical History H/O eye surgery Family History Family History Mother Hypertension Father Hypertension Social History Social History Smoking status: Never smoker Second hand tobacco smoke exposure: No Alcohol intake: never Substance use: never Do You Feel Safe in your Home?: Yes Lack of Transportation: No Lack of Food: Never True Current Housing: I Have Housing Concerned About Future Housing: No Difficulty Paying Gas/Electric Bills: No Difficulty Paying for Meds: No Currently Unemployed: No Education: High School Diploma/GED Difficulty w/ Childcare or Family Care: No Living arrangements: with family Gender identity (if verbalized by the patient): Female Sexual Orientation (if Verbalized by the Patient): Straight or Heterosexual Spiritual care concerns: No Exam Day of Procedure 05/22/24 14:49 Patient weight: normal Heart: regular rate and rhythm (hx sinus arrythmia on EKG) Lungs: clear to auscultation and normal air movement Airway: Mallampati scale class 1 Neurological: alert and oriented
[2024-05-22 14:56] LABS: HIV 1/2 Ab P24 Ag Result Negative (Negative)
[2024-05-22] MEDS: OXYTOCIN 30 UNITS/NS 500 ML 30 UNITS/500 ML BAG 999 UNITS IV CONT (17:00)
[2024-05-22] MEDS: LIDOCAINE HCL 1% LOCAL INJ 20 ML VIAL (17:00)
--- NOTE | 2024-05-22 17:08 | PM.OBPRVD ---
OB - Vaginal Delivery Note Procedure Delivery date: 05/22/24 Induction method: None Delivery augmentation: Rupture of Membranes Delivery monitor: External FHT and External Uterine Route of delivery: Episiotomy description: None Laceration Description: Superficial Specimen: No Quantitative Blood Loss (ml): 50 Anesthesia type: None Disposition: Floor Complications: No immediate complications Baby Date of : 05/22/24 Time of : 16:57 Infant gender: Female Weight (pounds): 7 Weight (ounces): 8 presentation: vertex position: Left Occiput Anterior Placenta delivery description: Spontaneous Cord Vessel Description: 3 Vessels, Nuchal Cord (1) and Around Body (x1) score one minute: 8 score five minutes: 9
[2024-05-22] MEDS: HYDROcodone/acetaminophen (*CRX) 5-325 MG TABLET 1 TAB PO ×2 (17:30→23:23)
[2024-05-22] MEDS: OXYTOCIN 30 UNITS/NS 500 ML 30 UNITS/500 ML BAG 125 UNITS IV CONT (17:37)
[2024-05-22] MEDS: BENZOCAINE 20% AER SPR (*SP) 56 GM CAN 1 SPRAY TOPICAL (19:12)
[2024-05-22] MEDS: WITCH HAZEL 40 PADS 1 PAD TOPICAL (19:12)
--- NOTE | 2024-05-22 19:46 | OBPPTRN ---
Patient transferred to post room #292 via w/c. Support person present. Oriented to unit, room, information board, rooming in, admission packet and security measures. Patient verbalizes understanding.
[2024-05-23] MEDS: HYDROcodone/acetaminophen (*CRX) 5-325 MG TABLET 1 TAB PO (05:00)
[2024-05-23 05:17] LABS: Hematocrit 29.6 % (37.0-47.0)
--- NOTE | 2024-05-23 06:28 | P.PNOB_ITS ---
OB - PN: Subj Subjective Date/time seen: 05/23/24 06:28 Interval history: pp day 1 doing well no complaints baby transferred to [facility] OB - PN: Obj Data Labs 05/23/24 04:55 Labs: Laboratory Results - last 24 hr 05/22/24 05/23/24 13:58 04:55 WBC 8.2 RBC 3.77 L Hgb 9.5 L 9.0 L Hct 30.0 L 29.6 L MCV 79.6 L MCH 25.2 L MCHC 31.7 L RDW 15.7 H Plt Count 192 MPV 11.7 H Immature Gran % (Auto) 0.7 H Neut % (Auto) 72.3 Lymph % (Auto) 21.2 [place] % (Auto) 5.3 Eos % (Auto) 0.1 Baso % (Auto) 0.4 Lymph # (Auto) 1.74 [place] # (Auto) 0.4 Eos # (Auto) 0.0 Baso # (Auto) 0.0 Abs Immat Gran (auto) 0.06 H Absolute Neuts (auto) 5.9 Absolute Nucleated RBC 0.000 Nucleated RBC % 0.0 RPR Non-reactive HIV 1&2 Ab/P24 Ag 4thGn Negative Blood Type O Positive Antibody Screen Negative OB - PN A/P Plan day: 1 Plan: routine care and discharge home Time Spent With Patient Time: Total time spent is greater than 50% in coordination of care (as documented) at patient's floor/unit and/or counseling patient: Review of Systems Review of Systems: All systems reviewed & are unremarkable except as noted in HPI and below Exam Const: General: cooperative, healthy appearing and comfortable Resp: Effort & Inspection: normal respiratory effort Skin: General skin exam: normal color Neuro: General: patient oriented x3
--- NOTE | 2024-05-23 06:30 | PM.OBDSVD ---
DS: Admitting Diagnosis Discharge Date 05/23/24 Admitting Diagnosis labor DS: Discharge Diagnosis Discharge Diagnosis (1) Vaginal delivery: Code(s): O80 - Encounter for full-term uncomplicated delivery Status: Acute OB - DS: Summary OB Procedures : None OB Procedures Intrapartum: Spontaneous Vag Delivery OB Procedures: : None Peripartum Data Laceration Description: Superficial Episiotomy description: None Time Spent with Patient Time attestation: Total time spent providing and/or coordinating discharge services: DS: Data Data Completed and Pending Labs on day of discharge: Labs from last 24 hours 05/23/24 05/22/24 04:55 13:58 WBC 8.2 RBC 3.77 L Hgb 9.0 L 9.5 L Hct 29.6 L 30.0 L MCV 79.6 L MCH 25.2 L MCHC 31.7 L RDW 15.7 H Plt Count 192 MPV 11.7 H Immature Gran % (Auto) 0.7 H Neut % (Auto) 72.3 Lymph % (Auto) 21.2 [place] % (Auto) 5.3 Eos % (Auto) 0.1 Baso % (Auto) 0.4 Lymph # (Auto) 1.74 [place] # (Auto) 0.4 Eos # (Auto) 0.0 Baso # (Auto) 0.0 Abs Immat Gran (auto) 0.06 H Absolute Neuts (auto) 5.9 Absolute Nucleated RBC 0.000 Nucleated RBC % 0.0 RPR Non-reactive HIV 1&2 Ab/P24 Ag 4thGn Negative Blood Type O Positive Antibody Screen Negative Discharge Plan Discharge Attending physician on discharge: Ori Camacho Discharging Clinician: Soni Boone Patient Disposition: Home, Self-Care Activity: pelvic rest Diet: regular Patient Instructions: Antibiotic Form Stand Alone Forms: General Discharge Information Follow-up/Referrals: Soni Boone CNM [Certified Nurse Commodity Management Specialist] - 4 Weeks Discharge Medications: New ibuprofen 600 mg Tablet 600 mg PO Q6H PRN (Reason: Cramping) Qty: 30 0RF Continued polysaccharide iron complex 150 mg iron Capsule 150 mg PO BIDWM Qty: 60 0RF Date of admission: 05/22/24 13:22 Primary Care Provider: PHYSICIAN,TERRA COTTA [employer]OLD [employer]KER Admitting Provider: Ori Camacho Attending physician on admission: Ori Camacho Condition: Stable
[2024-05-23 07:59] VITALS: BP 92/45; PULSE 85; RESP 18; TEMP 36.8; O2SAT 99
[2024-05-23 08:55] VITALS: BP 101/62
[2024-05-23] MEDS: MULTIVIT/MIN/PREN/FOL AC/IRON TABLET 1 TAB PO (08:59)
[2024-05-23] MEDS: DOCUSATE SODIUM 100 MG CAPSULE PO (08:59)
[2024-05-23] MEDS: POLYSACCHARIDE IRON COMPLEX 150 MG CAPSULE PO (08:59)
== END 2024-05-23 11:20 | disposition home or self-care (01) | DRG 560 ==
LOC: ANHLDR 13:46 → ANHOB2 19:53
PROVIDERS: Admitting Provider Advanced Practice Midwife; Visit Provider Obstetrics & Gynecology
DX: O69.81X0 Labor and delivery complicated by cord around neck, without compression, not applicable or unspecified (principal); Z37.0 Single live birth; Z3A.37 37 weeks gestation of pregnancy
CPT/HCPCS: 36415; 85014; 85018; 85025; 86592; 86703; 86850; 86900; 86901; A9270; G0432; J2590; J2795; J7120